=== PATIENT | female | born 1990 | race African-American/Black ===

== ENCOUNTER 2016-05-19 01:58 | Emergency (ER) | payer MEDICAID ==
[2016-05-19 01:58] VITALS: BMI 39.6
[2016-05-19] MEDS ORDERED: OXYCODONE HCL 5 MG TABLET ONE (02:23)
--- NOTE | 2016-05-19 05:00 | DIRPT ---
CLINICAL DATA: 25-year-old female with left wrist and hand pain. EXAM: LEFT WRIST - COMPLETE 3+ VIEW; LEFT HAND - COMPLETE 3+ VIEW COMPARISON: Radiograph dated 12/03/2015 FINDINGS: There is no evidence of fracture or dislocation. There is no evidence of arthropathy or other focal bone abnormality. Soft tissues are unremarkable. IMPRESSION: Negative. Electronically Signed By: Jose Griffin M.D. On: 05/19/2016 04:57
== END 2016-05-19 02:14 | disposition home or self-care (01) ==
LOC: ED 01:58
DX: S60.222A Contusion of left hand, initial encounter (principal); X58.XXXA Exposure to other specified factors, initial encounter
CPT/HCPCS: 73110; 73130; 99283; J3490